=== PATIENT | female | born 1990 | race Caucasian/White ===

== ENCOUNTER 2018-01-10 16:09 | Emergency (ER) | payer OTHER ==
[~2018-01-10] VITALS: Ht 160 cm; Wt 86.2 kg
[~2018-01-10 16:09] MED LIST: BACTRIM DS TAB1 EACH PO; FOLIC ACID1 MG PO; KEFLEX500 MG PO; LEXAPRO20 MG PO; PRENATAL PO; PROAIR HFA8.5 GM IH; PYRIDIUM200 MG PO; RITALIN LA10 MG PO; TRILEPTAL150 MG PO
[2018-01-10 16:18] VITALS: BP 121/77
[2018-01-10] MEDS ORDERED: [UNRECOGNIZED DRUG - REMARK] PO (16:21)
[2018-01-10 16:28] LABS: URINE BILIRUBIN NEGATIVE (Negative); URINE BLOOD 2+ (Negative); URINE CLARITY CLEAR; URINE COLOR YELLOW; URINE GLUCOSE-RANDOM NEGATIVE (Negative); URINE KETONES NEGATIVE (Negative); URINE LEUKOCYTES-REFLEX NEGATIVE (Negative); URINE NITRITE-REFLEX NEGATIVE (Negative); URINE PROTEIN NEGATIVE (Negative); URINE SPECIFIC GRAVITY 1.015 (1.005-1.030); URINE UROBILINOGEN 0.2 E.U./dl (0.2-1.0)
[2018-01-10 16:52] LABS: CASTS None Seen /LPF (None Seen); SQUAMOUS 4-10 Moderate /LPF (0-3)
[2018-01-10 16:53] LABS: BACTERIA-REFLEX None Seen /HPF (None Seen); URINE RBC 3-10 Few /HPF (0-2); URINE WBC-REFLEX 0-5 Rare /HPF (0-5)
[2018-01-10 16:54] LABS: CRYSTALS None Seen /LPF (None Seen)
== END 2018-01-10 16:42 | disposition home or self-care (01) ==
LOC: M.ERS 16:09
PROVIDERS: Physician Assistant
DX: K64.9 Unspecified hemorrhoids (principal); F32.9 Major depressive disorder, single episode, unspecified; Z88.6 Allergy status to analgesic agent

== ENCOUNTER 2018-07-06 17:27 | Emergency (ER) | payer OTHER ==
[~2018-07-06] VITALS: Ht 157.5 cm; Wt 86.2 kg
[~2018-07-06 17:27] MED LIST changes: +[UNRECOGNIZED DRUG - REMARK] PO
[2018-07-06 19:21] VITALS: BP 131/77
== END 2018-07-06 19:21 | disposition home or self-care (01) ==
LOC: M.ERS 17:27
DX: S46.812A Strain of other muscles, fascia and tendons at shoulder and upper arm level, left arm, initial encounter (principal); F32.9 Major depressive disorder, single episode, unspecified; Z88.6 Allergy status to analgesic agent; W10.9XXA Fall (on) (from) unspecified stairs and steps, initial encounter; Y92.89 Other specified places as the place of occurrence of the external cause; Y93.89 Activity, other specified; Y99.8 Other external cause status